=== PATIENT | female | born 1975 | race Caucasian/White ===

== ENCOUNTER → 2016-12-09 | Outpatient (CLI) | payer BC | LOC: US 07:45 | DX: R10.11 Right upper quadrant pain (principal); K76.0 Fatty (change of) liver, not elsewhere classified | CPT/HCPCS: 76705 ==

== ENCOUNTER 2021-04-27 13:38 | Inpatient (IN) | payer BC ==
[~2021-04-27] VITALS: Ht 160 cm; Wt 59.0 kg
[2021-04-27 14:36] LABS: HEMOGLOBIN 14.1 gm/dl (12.3-15.3); RED BLOOD COUNT 3.72 M/UL (4.00-5.10); WHITE BLOOD COUNT 9.7 K/UL (4.5-11.0)
[2021-04-27 14:56] LABS: BUN/CREATININE RATIO 49 (0-10)
[2021-04-28 07:02] LABS: HEMOGLOBIN 11.9 gm/dl (12.3-15.3); RED BLOOD COUNT 3.24 M/UL (4.00-5.10); WHITE BLOOD COUNT 7.1 K/UL (4.5-11.0)
[2021-04-28 07:34] LABS: BUN/CREATININE RATIO 46 (0-10)
[2021-04-28] MEDS ORDERED: LOSARTAN-HCTZ1 EACH PO (10:11)
[2021-04-28] MEDS ORDERED: PROPRANOLOL HCL10 MG PO (10:12)
[2021-04-28] MEDS ORDERED: HYDROXYZINE HCL25 MG PO (10:12)
[2021-04-28] MEDS ORDERED: SERTRALINE HCL50 MG PO (10:12)
[2021-04-29 04:42] LABS: HEMOGLOBIN 11.4 gm/dl (12.3-15.3); RED BLOOD COUNT 3.09 M/UL (4.00-5.10); WHITE BLOOD COUNT 8.4 K/UL (4.5-11.0)
[2021-04-29 05:07] LABS: BUN/CREATININE RATIO 39 (0-10)
[2021-04-29] MEDS ORDERED: COZAAR100 MG PO (18:55)
--- NOTE | 2021-04-29 21:02 | NUR ---
PT D/C BP IS 172/100. PT STATES THAT SHE IS JUST NERVOUS AND THINKS HER BLOOD PRESSURE WILL GO DOWN WHEN SHE GETS HOME. SHE DOES NOT WANT TO STAY AT THE HOSPITAL UNTIL HER BLOOD PRESSURE GOES DOWN. SHE SAID SHE WILL CALL OR COME BACK TO ER IF SHE CANT GET IT UNDER CONTROL.
== END 2021-04-29 21:15 | disposition home or self-care (01) | DRG 439 ==
LOC: ER1 13:38 → CDU 17:21 → MED SURG 4 18:16
PROVIDERS: Emergency Medicine; Physician Assistant; ADMIT Internal Medicine
DX: K85.90 Acute pancreatitis without necrosis or infection, unspecified (principal); E87.1 Hypo-osmolality and hyponatremia; Z20.822 Contact with and (suspected) exposure to COVID-19; N30.00 Acute cystitis without hematuria; I10 Essential (primary) hypertension; F41.9 Anxiety disorder, unspecified; F10.10 Alcohol abuse, uncomplicated; F32.A Depression, unspecified; E87.6 Hypokalemia; Z98.51 Tubal ligation status
CPT/HCPCS: 36415; 76705; 80053; 80061; 80307; 81001; 83690; 83735; 84100; 84703; 85025; 86140; 87077; 87086; 87186; 96374; 96375; 99285; C9113; G0480; J0696; J1650; J1885; J1956; J2270; J2405; J3480; J7030; Q9967; U0002

== ENCOUNTER → 2021-05-13 | Day surgery (SDC) | payer BC ==
[~2021-05-13] MED LIST: COZAAR100 MG PO; FLUTICASONE SPRAY; HYDROXYZINE HCL25 MG PO; LOSARTAN-HCTZ1 EACH PO; POTASSIUM OTC PO; PROPRANOLOL HCL10 MG PO; SERTRALINE HCL50 MG PO; VITAMIN B12 PO
== END | disposition home or self-care (01) ==
LOC: OR 05-12 07:30
DX: K80.10 Calculus of gallbladder with chronic cholecystitis without obstruction (principal); K85.10 Biliary acute pancreatitis without necrosis or infection; I10 Essential (primary) hypertension; Z20.822 Contact with and (suspected) exposure to COVID-19
CPT/HCPCS: J0690; J1100; J1170; J1885; J2001; J2250; J2405; J2704; J2710; J3010; J7030; J7120

== ENCOUNTER 2022-02-02 10:11 | Inpatient (IN) | payer BC ==
[~2022-02-02] VITALS: Ht 160 cm; Wt 61.2 kg
[~2022-02-02 10:11] MED LIST changes: -POTASSIUM OTC PO; +POTASSIUM99 M3 PO
[2022-02-02 11:41] LABS: RED BLOOD COUNT 3.73 M/UL (4.00-5.10)
[2022-02-02 12:24] LABS: BUN/CREATININE RATIO 55 (0-10)
[2022-02-02] MEDS ORDERED: IBU800 MG PO (15:22)
[2022-02-02] MEDS ORDERED: ASPIRIN EC81 MG PO (15:22)
[2022-02-03 06:18] LABS: HEMOGLOBIN 12.2 gm/dl (12.3-15.3); WHITE BLOOD COUNT 10.8 K/UL (4.5-11.0)
[2022-02-03 06:19] LABS: RED BLOOD COUNT 3.3 M/UL (4.00-5.10)
[2022-02-03 06:32] LABS: BUN/CREATININE RATIO 25 (0-10)
[2022-02-04 06:06] LABS: HEMOGLOBIN 11.4 gm/dl (12.3-15.3); RED BLOOD COUNT 3.1 M/UL (4.00-5.10); WHITE BLOOD COUNT 9.2 K/UL (4.5-11.0)
[2022-02-04 06:44] LABS: BUN/CREATININE RATIO 33 (0-10)
[2022-02-05 05:16] LABS: HEMOGLOBIN 11.5 gm/dl (12.3-15.3); RED BLOOD COUNT 3.1 M/UL (4.00-5.10); WHITE BLOOD COUNT 7.7 K/UL (4.5-11.0)
[2022-02-05 05:32] LABS: BUN/CREATININE RATIO 27 (0-10)
[2022-02-05] MEDS ORDERED: AMOX TR-K CLV1 EAC4 PO (14:20)
[2022-02-05] MEDS ORDERED: PROTONIX40 MG PO (14:20)
[2022-02-05] MEDS ORDERED: CELEXA10 MG PO (14:20)
[2022-02-05] MEDS ORDERED: PHOS-NAK PACKET1 EA PO (14:20)
[2022-02-05] MEDS ORDERED: LEVOFLOXACIN500 MG PO (14:29)
== END 2022-02-05 15:39 | disposition home or self-care (01) | DRG 439 ==
LOC: ER1 10:11 → MED SURG 4 14:59 → CDU 14:59 → MED SURG 4 16:25 → CCU 02-04 16:06
PROVIDERS: Internal Medicine; Physician Assistant; Physician Assistant Medical; ADMIT Internal Medicine
DX: K85.90 Acute pancreatitis without necrosis or infection, unspecified (principal); N30.00 Acute cystitis without hematuria; F10.10 Alcohol abuse, uncomplicated; E87.6 Hypokalemia; Z20.822 Contact with and (suspected) exposure to COVID-19; E83.39 Other disorders of phosphorus metabolism; K52.9 Noninfective gastroenteritis and colitis, unspecified; D69.6 Thrombocytopenia, unspecified; F32.A Depression, unspecified; G25.0 Essential tremor; F41.9 Anxiety disorder, unspecified; I10 Essential (primary) hypertension; F17.210 Nicotine dependence, cigarettes, uncomplicated; Z82.49 Family history of ischemic heart disease and other diseases of the circulatory system; Z98.51 Tubal ligation status; Z90.49 Acquired absence of other specified parts of digestive tract
CPT/HCPCS: 36415; 80053; 81001; 83605; 83690; 83735; 84100; 84132; 84703; 85025; 85027; 87040; 87077; 87086; 87186; 96374; 96375; 99285; J0696; J1170; J1650; J2270; J2405; J2543; J2550; J3411; J3475; J7030; Q9967

== ENCOUNTER → 2022-03-06 | Outpatient (CLI) | payer BC ==
[~2022-03-06] MED LIST changes: +AMOX TR-K CLV1 EAC4 PO; +ASPIRIN EC81 MG PO; +CELEXA10 MG PO; +IBU800 MG PO; +LEVOFLOXACIN500 MG PO; +PHOS-NAK PACKET1 EA PO; +PROTONIX40 MG PO
== END ==
LOC: KOH-I 02-26 13:00
DX: R51.9 Headache, unspecified (principal); J32.4 Chronic pansinusitis
CPT/HCPCS: 70551